=== PATIENT | female | born 1935 | race Caucasian/White ===

== ENCOUNTER 2018-09-16 15:42 | Inpatient (IN) | payer MEDICARE, BC ==
[~2018-09-16] VITALS: Ht 165.1 cm; Wt 72.7 kg
--- NOTE | 2018-10-03 09:30 | NUR ---
Patient arrived to room for Sotalol trial. Was sitting up in recliner. Offered gown and declined, wished to stay in her own clothes. Denies pain. Burglar Alarm Inspector in to see patient and visit with her and .
[2018-10-03 09:42] VITALS: BP 129/64; PULSE 75; TEMP 97.9
[2018-10-03 09:59] LABS: HEMOGLOBIN 14.5 g/dl (12.5-16.0); MEAN CELL VOLUME 95 fl (80.0-100.0); MEAN CORPUSCULAR HEMOGLOBIN 31 pg (27.0-31.0); MEAN CORPUSCULAR HGB CONC 33 g/dl (33.0-37.0); MEAN PLATELET VOLUME 10.8 fl (7.4-10.4); PLATELET COUNT 225 K/mm3 (130-400); RED BLOOD COUNT 4.62 M/mm3 (4.10-5.30); REDCELL DISTRIBUTION WIDTH-CV 12.2 % (11.5-14.5)
[2018-10-03 10:06] LABS: INR 1.5 (0.8-3.0); PROTHROMBIN TIME 16.8 SECONDS (9.7-12.8)
[2018-10-03 10:09] LABS: ALBUMIN 3.7 gm/dL (3.5-5.0); BILIRUBIN,TOTAL 0.7 mg/dL (0.0-1.0); CREATININE, serum 0.69 mg/dL (0.52-1.25); MAGNESIUM 1.8 mg/dL (1.6-2.3); POTASSIUM 4.4 mmol/L (3.4-5.0)
[2018-10-03] MEDS ORDERED: TYLENOL 325MG325 MG PO (11:20)
[2018-10-03] MEDS ORDERED: TYLENOL 500MG500 MG PO (11:22)
[2018-10-03] MEDS ORDERED: ELIQUIS 5MG PO (11:23)
[2018-10-03] MEDS ORDERED: SYNTHROID0.1 MG/TAB PO (11:24)
[2018-10-03] MEDS ORDERED: MULTI VITAMINS1 TAB PO (11:25)
[2018-10-03 11:41] VITALS: BP 135/73; PULSE 75; TEMP 98.8
[2018-10-03 15:55] VITALS: BP 125/50; PULSE 59; TEMP 98
--- NOTE | 2018-10-03 19:23 | NUR ---
Patient is sitting up in recliner reading a book. Denies pain at this time, stated APAP alleviated her headache. No needs voiced, call light is within reach.
[2018-10-03 20:00] VITALS: BP 113/56; PULSE 59; TEMP 97.5
--- NOTE | 2018-10-03 20:00 | NUR ---
PT AMBULATES IN ROOM AND GAIT IS STEADY. IN ROOM WITH PT WATCHING A GAME. PT DENIES PAIN OR DISCOMFORT AND HAS NO NEEDS AT THIS TIME.
[2018-10-04] VITALS (7 sets, daily range): BP systolic 108–155; BP diastolic 48–79; PULSE 48–61; TEMP 97.1–98.5
--- NOTE | 2018-10-04 04:35 | NUR ---
PT IN BED SLEEP/RESTING, AND EASILY AWAKES. PT ADVISED THAT SHE DOES NOT WANT LEVOTHYROXINE, BECAUSE SHE TAKES SYNTHROID. ADVISED THAT LEVOTHYROXINE IS THE GENERIC NAME. PT ADVISED THAT THEY ARE NOT THE SAME MEDICATION. PT HAS BEEN IN NSR SO FAR THIS WHOLE SHIFT. PT HAS NOT HAD ANY C/O PAIN OR DISCOMFORT. CALL LIGHT WITHIN REACH.
--- NOTE | 2018-10-04 06:13 | NUR ---
PT REFUSED SYNTHROID THIS AM, BECAUSE SHE HAD BROUGHT HER OWN FROM HOME. TAKEN SYNTHROID BOTTLE THAT HAS 2 TABLETS IN IT. CALLED PHARMACY AND WAS ADVISED TO PUT MEDICATION IN A PLASTIC BAGGY WITH NOTE TO TAKE TO PHARMACY AND THAT PT WANTS TO USE OWN MEDICATION, AND THEN PLACE BY BASIM. DONE DIRECTED. PT HAD TAKEN HER OWN SYNTHROID THIS AM. PT BACK IN BED RESTING.. PT DENIES PAIN OR DISCOMFORT, AND NO NEEDS AT THIS TIME. CALL LIGHT WITHIN REACH.
--- NOTE | 2018-10-04 07:00 | NUR ---
Reported on to Ja KIM.
[2018-10-04 07:27] LABS: BASO # 0.1 (0.0-0.2); BASO % 0.8 % (0.0-2.0); EOS # 0.2 (0.0-0.7); EOS % 2.3 % (0-4.0); GRAN # 4.9 (1.4-6.5); GRAN % 65.6 % (42.2-75.2); HEMATOCRIT 41.5 % (37.0-47.0); HEMOGLOBIN 13.7 g/dl (12.5-16.0); LYMPH # 1.7 (1.2-3.4); LYMPH % 22.3 % (20.0-51.0); MEAN CELL VOLUME 95 fl (80.0-100.0); MEAN CORPUSCULAR HEMOGLOBIN 31 pg (27.0-31.0); MEAN CORPUSCULAR HGB CONC 33 g/dl (33.0-37.0); MEAN PLATELET VOLUME 11.1 fl (7.4-10.4); MONO # 0.7 (0.1-0.6); MONO % 8.9 % (1.7-9.3); PLATELET COUNT 222 K/mm3 (130-400); RED BLOOD COUNT 4.39 M/mm3 (4.10-5.30); REDCELL DISTRIBUTION WIDTH-CV 12.2 % (11.5-14.5)
--- NOTE | 2018-10-04 07:30 | NUR ---
Assessment Charted. Patient was up walking around in room. Patient is pleasant. Telemetry on, HR reg. Vital signs stable. INT site is patent.
[2018-10-04 07:32] LABS: INR 1.3 (0.8-3.0); PROTHROMBIN TIME 15.3 SECONDS (9.7-12.8)
[2018-10-04 07:35] LABS: ALBUMIN 3.2 gm/dL (3.5-5.0); BILIRUBIN,TOTAL 0.9 mg/dL (0.0-1.0); CALCIUM 8.5 mg/dL (8.4-10.2); CREATININE, serum 0.65 mg/dL (0.52-1.25); MAGNESIUM 1.9 mg/dL (1.6-2.3); TOTAL PROTEIN 6.1 gm/dL (6.4-8.2)
--- NOTE | 2018-10-04 10:23 | NUR ---
Assessment completed, alert/oriented, vital signs stable, denies any chest pain or discomfort/ palpitations, , Sinus Eyal on tele/ QTc 470 and Sotalol given, she is up indepedenlty and denies needs at this time
--- NOTE | 2018-10-04 11:00 | NUR ---
Assessment unchanged. VSS. Patient is resting in the chair with no concerns at this time.
--- NOTE | 2018-10-04 12:09 | NUR ---
First visit from the waste management specialist. No needs right now.
--- NOTE | 2018-10-04 16:01 | NUR ---
RICHARD and SW student met with patient and her family. Patient lives with her in [place] and her daughter lives locally and helps them. Patients PCP is Dr Leeann Sanders and she obtains her medications from [facility]. Patient does not use any DME and is independent in all ADLs. She reports she has a DPOA-HC at home but did not bring it with her. Patient does not have any anticipated dc needs at this time and is planning on dc tomorrow.
--- NOTE | 2018-10-05 04:12 | NUR ---
PT HAD UNEVENTFUL NOC. NO COMPLAINTS OR ISSUES VOICED. NO C/O CHEST PAIN OR NOTED PALPATIONS. APPEARED TO HAVE RESTED WELL THIS NOC.
[2018-10-05 04:49] VITALS: BP 106/52; PULSE 53; TEMP 97.7
[2018-10-05 06:54] LABS: BASO # 0.1 (0.0-0.2); BASO % 0.7 % (0.0-2.0); EOS # 0.2 (0.0-0.7); EOS % 3.4 % (0-4.0); GRAN # 4.1 (1.4-6.5); GRAN % 60.9 % (42.2-75.2); HEMATOCRIT 43.4 % (37.0-47.0); HEMOGLOBIN 14.2 g/dl (12.5-16.0); LYMPH # 1.7 (1.2-3.4); LYMPH % 25.4 % (20.0-51.0); MEAN CELL VOLUME 96 fl (80.0-100.0); MEAN CORPUSCULAR HEMOGLOBIN 31 pg (27.0-31.0); MEAN CORPUSCULAR HGB CONC 33 g/dl (33.0-37.0); MEAN PLATELET VOLUME 11.2 fl (7.4-10.4); MONO # 0.6 (0.1-0.6); MONO % 9.3 % (1.7-9.3); PLATELET COUNT 231 K/mm3 (130-400); RED BLOOD COUNT 4.53 M/mm3 (4.10-5.30); REDCELL DISTRIBUTION WIDTH-CV 12.1 % (11.5-14.5)
[2018-10-05 07:02] LABS: INR 1.4 (0.8-3.0); PROTHROMBIN TIME 16.2 SECONDS (9.7-12.8)
[2018-10-05 07:09] LABS: ALBUMIN 3.3 gm/dL (3.5-5.0); BILIRUBIN,TOTAL 0.9 mg/dL (0.0-1.0); CALCIUM 8.8 mg/dL (8.4-10.2); CREATININE, serum 0.68 mg/dL (0.52-1.25); POTASSIUM 4.2 mmol/L (3.4-5.0); TOTAL PROTEIN 6.4 gm/dL (6.4-8.2)
--- NOTE | 2018-10-05 07:19 | NUR ---
Assessment completed, alert/oriented, vital signs stable, denies any chest pain/discomfort/palpitations, heart Sinus Eyal on tele, Qtc wnl and will give Sotalol this morning, lungs CTA/ denies any SOA or resp.difficulty, she is independent in the room, anticipating discharge later today
--- NOTE | 2018-10-05 07:49 | NUR ---
PT'S O2 AND PULSE OX COMPLETED AT THIS TIME. PT HAS HAD AN ACCEPTABLE O2 SAT FOR GREATER THAN 24HOURS ON RA.
[2018-10-05 08:01] VITALS: BP 108/65; PULSE 56; TEMP 98.7
[2018-10-05] MEDS ORDERED: BETAPACE 80MG80 MG PO (09:32)
--- NOTE | 2018-10-05 11:16 | NUR ---
discharge instructions reviewed with the patient and her , instructed to follow up with Cardiology as we have scheduled for her, instructed to take Sotalol as prescribed/ scrpt sent to [facility] for her, prinited education on this med given to her, IV and TELE removed, she is ambulatory and leaving with her , I personally escorted them out the door
== END 2018-10-05 11:18 | disposition home or self-care (01) | DRG 310 ==
LOC: MEDICAL 09-23 15:40
PROVIDERS: Nurse Practitioner; ADMIT Internal Medicine Cardiovascular Disease
DX: I48.0 Paroxysmal atrial fibrillation (principal); I10 Essential (primary) hypertension; E78.5 Hyperlipidemia, unspecified; Z79.01 Long term (current) use of anticoagulants; E78.2 Mixed hyperlipidemia

== ENCOUNTER 2019-08-21 18:09 | Emergency (ER) | payer MEDICARE, BC ==
[~2019-08-21] VITALS: Ht 165.1 cm; Wt 68.2 kg
[~2019-08-21 18:09] MED LIST: BETAPACE 80MG80 MG PO; ELIQUIS 5MG PO; MULTI VITAMINS1 TAB PO; SYNTHROID0.1 MG/TAB PO; TYLENOL 325MG325 MG PO; TYLENOL 500MG500 MG PO
[2019-08-21 18:14] VITALS: TEMP 97.5
[2019-08-21 18:45] LABS: BASO # 0.1 (0.0-0.2); BASO % 1.1 % (0.0-2.0); EOS # 0.3 (0.0-0.7); EOS % 3.8 % (0-4.0); GRAN # 5.1 (1.4-6.5); GRAN % 57.3 % (42.2-75.2); HEMATOCRIT 47.9 % (37.0-47.0); HEMOGLOBIN 15.9 g/dl (12.5-16.0); LYMPH # 2.5 (1.2-3.4); LYMPH % 27.6 % (20.0-51.0); MEAN CELL VOLUME 96 fl (80.0-100.0); MEAN CORPUSCULAR HEMOGLOBIN 32 pg (27.0-31.0); MEAN CORPUSCULAR HGB CONC 33 g/dl (33.0-37.0); MEAN PLATELET VOLUME 10.2 fl (7.4-10.4); MONO # 0.9 (0.1-0.6); MONO % 9.9 % (1.7-9.3); PLATELET COUNT 309 K/mm3 (130-400); RED BLOOD COUNT 4.97 M/mm3 (4.10-5.30); REDCELL DISTRIBUTION WIDTH-CV 11.9 % (11.5-14.5)
[2019-08-21] MEDS ORDERED: DOXYCYCLINE HY100 MG PO (18:48)
[2019-08-21] MEDS ORDERED: BETAPACE 80MG80 MG PO (18:50)
[2019-08-21 18:54] LABS: INR 1.3 (0.8-3.0); PROTHROMBIN TIME 14.8 SECONDS (9.7-12.8)
[2019-08-21 18:58] LABS: ALBUMIN 4.1 gm/dL (3.5-5.0); BILIRUBIN,TOTAL 0.6 mg/dL (0.0-1.0); C-REACTIVE PROTEIN 1.1 mg/dL (0.0-0.9); CALCIUM 9.1 mg/dL (8.4-10.2); CREATININE, serum 0.72 (0.52-1.25); POTASSIUM 4.5 mmol/L (3.4-5.0); TOTAL PROTEIN 8.1 gm/dL (6.4-8.2)
[2019-08-21 19:09] LABS: TROPONIN-I 0.029 ng/mL (0.000-0.035)
[2019-08-21] MEDS ORDERED: PREDNISONE20 MG PO (19:51)
[2019-08-21 20:33] VITALS: BP 148/78; PULSE 74
== END 2019-08-21 20:33 | disposition home or self-care (01) ==
LOC: COL.ER 18:09
PROVIDERS: Emergency Medicine
DX: J18.9 Pneumonia, unspecified organism (principal); I10 Essential (primary) hypertension; E78.5 Hyperlipidemia, unspecified; E03.9 Hypothyroidism, unspecified; I48.91 Unspecified atrial fibrillation
CPT/HCPCS: J7030; J7512

== ENCOUNTER 2020-04-25 14:16 | Observation (INO) | payer MEDICARE, BC ==
[~2020-04-25] VITALS: Ht 165.1 cm; Wt 69.5 kg
[~2020-04-25 14:16] MED LIST changes: +DOXYCYCLINE HY100 MG PO; +PREDNISONE20 MG PO
[2020-04-25 14:53] LABS: COLLECTION METHOD CLEAN CATCH
[2020-04-25 14:56] LABS: BASO # 0.1 (0.0-0.2); BASO % 0.4 % (0.0-2.0); EOS # 0.1 (0.0-0.7); EOS % 0.5 % (0-4.0); GRAN # 12.9 (1.4-6.5); GRAN % 86.1 % (42.2-75.2); HEMATOCRIT 45.4 % (37.0-47.0); HEMOGLOBIN 15.2 g/dl (12.5-16.0); LYMPH % 6.5 % (20.0-51.0); MEAN CELL VOLUME 96 fl (80.0-100.0); MEAN CORPUSCULAR HEMOGLOBIN 32 pg (27.0-31.0); MEAN CORPUSCULAR HGB CONC 34 g/dl (33.0-37.0); MEAN PLATELET VOLUME 10.4 fl (7.4-10.4); MONO # 0.9 (0.1-0.6); MONO % 5.9 % (1.7-9.3); PLATELET COUNT 213 K/mm3 (130-400); RED BLOOD COUNT 4.74 M/mm3 (4.10-5.30); REDCELL DISTRIBUTION WIDTH-CV 11.9 % (11.5-14.5)
[2020-04-25 15:03] LABS: INR 1.3 (0.8-3.0); PROTHROMBIN TIME 14.1 SECONDS (9.7-12.8)
[2020-04-25 15:04] LABS: PH 7 (5-8); SQUAMOUS EPITHELIAL None Seen /hpf; URINE APPEARANCE Clear; URINE BACTERIA Rare /hpf; URINE BILIRUBIN Negative (NEGATIVE); URINE BLOOD Negative (NEGATIVE); URINE COLOR Yellow; URINE GLUCOSE Negative (NEGATIVE); URINE KETONE Trace (NEGATIVE); URINE LEUKOCYTE ESTERASE Negative (NEGATIVE); URINE NITRATE Negative (NEGATIVE); URINE PROTEIN(semi-quant) Negative (NEGATIVE); URINE RBC 0-2 /hpf; URINE UROBILINOGEN Negative (NEGATIVE)
[2020-04-25 15:09] LABS: ALBUMIN 3.9 gm/dL (3.5-5.0); BILIRUBIN,TOTAL 1.1 mg/dL (0.0-1.0); CALCIUM 8.6 mg/dL (8.4-10.2); CREATININE, serum 0.56 (0.52-1.25); POTASSIUM 3.9 mmol/L (3.4-5.0); TOTAL PROTEIN 7.1 gm/dL (6.4-8.2)
[2020-04-25 18:04] VITALS: BP 139/70; PULSE 75; TEMP 98
--- NOTE | 2020-04-25 19:18 | NUR ---
REPORT RECEIVED FROM ELOY FROM . INITIAL DONE BY MICHAEL, REPORT HANDED OFF TO JULIO CEBALLOS.
--- NOTE | 2020-04-25 20:07 | NUR ---
Assessment complete. Lungs clear. Heart sounds normal. [place] active x4. Pulses present throughout. Bilateral lower ext edema +1. IV right forearm infusing without complications. INT right AC removed at patient request. Patient provided with PRN tramadol for 10/10 back pain. Will reassess pain after 1 hour. Denies other needs. All questions answered. Med rec complete. Call light in reach.
[2020-04-25 20:20] VITALS: BP 139/74; PULSE 78; TEMP 98.7
--- NOTE | 2020-04-25 22:50 | NUR ---
Patient rating pain 10/10. Given PRN norco. Denies other needs. Call light in reach.
[2020-04-25 23:41] VITALS: BP 101/52; PULSE 62; TEMP 99.3
--- NOTE | 2020-04-26 | NUR ---
Resting in bed. Denies needs. Call light in reach.
[2020-04-26 03:34] VITALS: BP 102/45; PULSE 68; TEMP 98.7
--- NOTE | 2020-04-26 06:27 | NUR ---
Patient required x1 dose of tramadol and x2 doses of norco for pain control. Patient refused to get out of bed to urinate. Otherwise uneventful night. Resting in bed this AM. Call light in reach.
--- NOTE | 2020-04-26 06:45 | NUR ---
Report given to JULIO Gusman
[2020-04-26 07:31] LABS: BASO # 0.1 (0.0-0.2); BASO % 0.8 % (0.0-2.0); EOS # 0.1 (0.0-0.7); EOS % 1.5 % (0-4.0); GRAN % 75.5 % (42.2-75.2); HEMOGLOBIN 13.4 g/dl (12.5-16.0); LYMPH # 1.3 (1.2-3.4); MEAN CELL VOLUME 98 fl (80.0-100.0); MEAN CORPUSCULAR HEMOGLOBIN 33 pg (27.0-31.0); MEAN CORPUSCULAR HGB CONC 34 g/dl (33.0-37.0); MONO # 0.7 (0.1-0.6); PLATELET COUNT 182 K/mm3 (130-400)
[2020-04-26 07:43] LABS: CALCIUM 7.9 mg/dL (8.4-10.2); CREATININE, serum 0.65 (0.52-1.25); POTASSIUM 3.7 mmol/L (3.4-5.0)
[2020-04-26 08:00] VITALS: BP 112/44; PULSE 73; TEMP 97.9
--- NOTE | 2020-04-26 08:00 | NUR ---
Patient laying in bed, alert and oriented x 3. States discomfort/pain to back if she is not laying on her right side. Refuses medication at this time. Assessment complete. Abrasion to right shoulder noted. Denies further needs at this time.
--- NOTE | 2020-04-26 09:30 | NUR ---
Patient requests pain meds for pain 8/10 to lower back. Medications given per orders.
--- NOTE | 2020-04-26 10:00 | NUR ---
Patient working with physical therapy.
--- NOTE | 2020-04-26 12:20 | NUR ---
Patient sitting up on edge of bed, spouse at bedside. States pain to lower back 6/10, medications given per orders. Denies further needs at this time.
[2020-04-26 12:54] VITALS: BP 98/48; PULSE 56; TEMP 98
--- NOTE | 2020-04-26 12:58 | NUR ---
Patient ambulated to restroom, steady gait with walker. Patient to MRI by wheelchair.
--- NOTE | 2020-04-26 14:12 | NUR ---
Primary nurse was assisted with [id number] patient care by [facility] AD[facility] Katie Jones and [facility] instructor Radha Ramirez RN-BC.
--- NOTE | 2020-04-26 15:00 | NUR ---
Patient requests pain medication for pain 02/22 to lower back after returning from MRI. Medications given per orders. No further needs at this time.
--- NOTE | 2020-04-26 16:37 | NUR ---
Parking Garage Manager met with patient to discuss discharge planning. Patient lives in [place] with her , Adelso (ph#[phone]) [address] sees Dr. Sanders for primary care. Patient obtains medications from [facility] with no difficulties and reports that her has a rollator and front wheeled walker at home. Patient states she may be interested in renting a FWW at discharge. RICHARD advised that [employer] rents FWWs for $20 down/$1 per day. Patient states she is normally independent with ADLS and plans to return home at discharge. Patient would like to apply for a handicap placard so RICHARD collaborated with ARIANE Oakes to complete the application. RICHARD advised patient she would need to take application to the DMV to be processed. Violette also advised SW that they would recommend Home Health Services for patient. RICHARD followed up with patient about HH and provided Medicare.gov list of HH agencies that serve [place]. Patient is unsure about this due to COVID and would want to know what her thinks. RICHARD contacted patient's , Adelso to discuss discharge planning. Adelso agrees with discharge home and states he is open to HH but that it's up to patient. RICHARD followed up with patient again who was on speakerphone with Adelso. Patient states once again that she does not feel like she needs HH at this time. RICHARD contacted SABINO Gonzalez at [facility] to provide update and will continue to follow.
[2020-04-26 17:41] VITALS: BP 109/43; PULSE 113; TEMP 97.8
--- NOTE | 2020-04-26 18:58 | NUR ---
Patient has done well states pain better controled with [place]. Has been up amulating in room with walker and stand by assist. Denies further needs at this time. Will report off to shift production associate.
[2020-04-26 19:12] VITALS: BP 111/84; PULSE 59; TEMP 99
--- NOTE | 2020-04-26 20:08 | NUR ---
Resting in bed. Assessment complete. Lungs clear. Heart sounds normal. Bowels active x4. Pulses present throughout. No edema noted. IV right forearm infusing without complications. Reports 3/10 pain with rest and 10/10 with movement. Given PRN norco at this time. Denies other needs. Call light in reach.
[2020-04-26 23:46] VITALS: BP 108/46; PULSE 64; TEMP 98.2
--- NOTE | 2020-04-27 01:55 | NUR ---
Up to restroom and returned to bed. Rating pain 10/10. Given PRN norco. Denies other needs. Call light in reach.
[2020-04-27 03:31] VITALS: BP 108/49; PULSE 66; TEMP 98.3
--- NOTE | 2020-04-27 05:44 | NUR ---
Patient required PRN norco for pain control throughout night. Otherwise uneventful night. Resting in bed this AM. Call light in reach.
--- NOTE | 2020-04-27 05:58 | NUR ---
Patient reported back pain. When questioned intensity patient states "It just hurts." Given PRN norco at this time. Call light in reach.
--- NOTE | 2020-04-27 07:07 | NUR ---
Report given to JULIO Gant
[2020-04-27 07:11] LABS: CALCIUM 7.7 mg/dL (8.4-10.2); CREATININE, serum 0.56 (0.52-1.25); POTASSIUM 3.7 mmol/L (3.4-5.0)
[2020-04-27 07:48] VITALS: BP 119/52; PULSE 66; TEMP 98
--- NOTE | 2020-04-27 08:25 | NUR ---
PAIN WELL MANAGED AT THIS TIME. PT ESCORTED TO BATHROOM, STEADY GAIT WITH WALKER. PT PLEASANT, PT REPORTS NAUSEA NO VOMITING. OXYGEN TAKEN OFF OF PT.
--- NOTE | 2020-04-27 10:00 | NUR ---
PT REPORTING HIGH PAIN WITH MOVEMENT, NORCO GIVEN, PT REFUSED MORPHINE. NO OTHER NEEDS AT THIS TIME.
[2020-04-27] MEDS ORDERED: ZOFRAN 4MG T4 MG/TAB PO (11:04)
[2020-04-27] MEDS ORDERED: NORCO 325 MG-51 TAB PO (11:06)
--- NOTE | 2020-04-27 11:29 | NUR ---
GONZALEZ update, gonzalez [facility] Patient made a choice to use [facility] from the medicare.gov referral list. SW made contact with home health to screen and start servics today. Patient reports that she has three walkers and will have PT work with her to adjust hieght. Nothing follows.
--- NOTE | 2020-04-27 12:00 | NUR ---
PT DISCHARGE EDUCATION PROVIDED, IV DISCONTINUED, PT DRESSED AND READY TO LEAVE, MEDICATION FROM PHARMACY GIVEN BACK TO PT, PT ESCORTED OUT WITH [facility] EMPLOYEE AND VIA WHEELCHAIR. NO OTHER NEEDS AT THIS TIME.
== END 2020-04-27 12:10 | disposition home health service (06) ==
LOC: COL.ER 14:16 → MEDICAL 18:09
PROVIDERS: Emergency Medicine; Physician Assistant; ADMIT Hospitalist
DX: S22.080A Wedge compression fracture of T11-T12 vertebra, initial encounter for closed fracture (principal); W18.30XA Fall on same level, unspecified, initial encounter; Y92.009 Unspecified place in unspecified non-institutional (private) residence as the place of occurrence of the external cause; I48.91 Unspecified atrial fibrillation; E03.9 Hypothyroidism, unspecified; D72.829 Elevated white blood cell count, unspecified; Z79.01 Long term (current) use of anticoagulants
CPT/HCPCS: 99223-AI; G0378; J1650; J2270; J2405; J3010; J7030; Q9967

== ENCOUNTER 2021-02-24 15:00 | Outpatient (RCR) | payer MEDICARE, BC ==
[~2021-02-24 15:00] MED LIST changes: +NORCO 325 MG-51 TAB PO; +ZOFRAN 4MG T4 MG/TAB PO
== END 2021-02-24 16:00 | disposition home or self-care (01) ==
LOC: WSC 15:00
DX: M47.816 Spondylosis without myelopathy or radiculopathy, lumbar region (principal); J84.9 Interstitial pulmonary disease, unspecified; I48.0 Paroxysmal atrial fibrillation; I10 Essential (primary) hypertension

== ENCOUNTER 2022-09-30 08:39 | Day surgery (SDC) | payer MEDICARE, BC ==
[~2022-09-30] VITALS: Ht 165.1 cm; Wt 58.7 kg
[~2022-09-30 08:39] MED LIST changes: +LIPITOR 10MG10 MG PO; +PROAIR HFA0.09 MG/AC IH; +PROBIOTIC ACID1 EAC3 PO
[2022-09-30 09:32] VITALS: BP 152/70; PULSE 54; TEMP 97.3
[2022-09-30 11:36] VITALS: BP 96/52; PULSE 67
--- NOTE | 2022-09-30 11:36 | NUR ---
Patient returns to room 2 per cart from surgery accompanied by Gustavo KIM and Wilfrid LONDON. Patient is awake and alert. IV fluids infusing and site is free of redness. Spouse in room. Call light in reach. Port a cath site on the right chest without swelling, drainage or redness. Warm blankets on and allowed to rest.
[2022-09-30] MEDS ORDERED: NORCO 325 MG-51 TAB PO (11:44)
[2022-09-30 11:51] VITALS: BP 136/65; PULSE 67
--- NOTE | 2022-09-30 11:51 | NUR ---
Sipping on chicken berroth. Denies pain or nausea. IV fluids infusing.
[2022-09-30 12:06] VITALS: BP 169/69; PULSE 69
--- NOTE | 2022-09-30 12:06 | NUR ---
Tolerates chicken berroth. Awake and talking with spouse.
--- NOTE | 2022-09-30 12:10 | NUR ---
IV to INT. Assisted up to the bathroom and gait is steady. Denies nausea. Right port a cath insertion site clear.
--- NOTE | 2022-09-30 12:21 | NUR ---
Returns to room and INT discontinued. Patient dresses self.
--- NOTE | 2022-09-30 12:37 | NUR ---
Dismissal instructions given and voices understanding of these. Provided port a cath information packet.
--- NOTE | 2022-09-30 12:43 | NUR ---
Patient discharged to home driven by spouse and taken to vehicle per wheelchair and assisted into car with instructions in hand.
== END 2022-09-30 12:43 | disposition home or self-care (01) ==
LOC: SDCO 08:39
DX: C18.9 Malignant neoplasm of colon, unspecified (principal); C77.2 Secondary and unspecified malignant neoplasm of intra-abdominal lymph nodes
CPT/HCPCS: C1788; J0690; J1644; J2704; J7120

== ENCOUNTER → 2023-08-27 | Outpatient (CLI) | payer MEDICARE, BC ==
[~2023-08-27] MED LIST changes: +Barium Sulfate 2% Oral Susp 450 ML X 2 BOTTLES PO SCH; +Iohexol 300 - 100 ML VIAL IV ONE; +NS 100 ML IV SCH
== END ==
LOC: COL.RAD 08:41
DX: C18.2 Malignant neoplasm of ascending colon (principal); R91.1 Solitary pulmonary nodule
CPT/HCPCS: Q9967

== ENCOUNTER → 2023-12-08 | Outpatient (CLI) | payer MEDICARE, BC ==
[~2023-12-08] MED LIST changes: -Barium Sulfate 2% Oral Susp 450 ML X 2 BOTTLES PO SCH; +PREDNISONE 5MG5 MG PO; +PROBIOTIC BLEN1 EACH PO
== END ==
LOC: COL.RAD 08:44
DX: C18.2 Malignant neoplasm of ascending colon (principal)
CPT/HCPCS: Q9967